=== PATIENT | female | born 1965 | race Caucasian/White ===

== ENCOUNTER 2017-12-14 11:34 | Inpatient (IN) | payer OTHER ==
[~2017-12-14] VITALS: Ht 162.6 cm; Wt 61.0 kg
[~2017-12-14 11:34] MED LIST: BACITRACIN 50,000 UNIT ONE; BUPIVACAINE/PF 0.5% ONE; THROMBIN 5,000 UNIT VIAL TP ONE
[2017-12-14 12:13] VITALS: BP 134/81
[2017-12-14] MEDS ORDERED: ACET325T14 PO (12:26)
[2017-12-14] MEDS ORDERED: TRAM50TA2 PO (12:26)
[2017-12-14] MEDS ORDERED: LORA1TAB PO (12:26)
[2017-12-14] MEDS ORDERED: ESCI10TA10 PO (12:26)
[2017-12-14] MEDS ORDERED: IBUP200C8 PO (12:26)
[2017-12-14] MEDS ORDERED: CELE200C PO (12:26)
[2017-12-14] MEDS ORDERED: ZOLP10TA PO (12:26)
[2017-12-14] MEDS ORDERED: LACTATED RINGERS 1,000 ML IV SCH (12:26)
[2017-12-14] MEDS ORDERED: LIDOCAINE-MPF 1%, 2ML ONE (12:29)
[2017-12-14] MEDS ORDERED: LIDOCAINE-MPF 1%, 2ML INFIL ONE (12:30)
[2017-12-14] MEDS ORDERED: FENTANYL PF 250 MCG/5ML ONE (13:11)
[2017-12-14] MEDS ORDERED: MIDAZOLAM 1 MG/ML, 2ML ONE (13:11)
[2017-12-14] MEDS ORDERED: PROPOFOL 10 MG/ML, 20ML ONE (13:12)
[2017-12-14] MEDS ORDERED: ROCURONIUM 10MG/ML,5ML ONE (13:12)
[2017-12-14] MEDS ORDERED: CEFAZOLIN 1,000 MG ONE ×2 (13:13)
[2017-12-14] MEDS ORDERED: WATER-INJECTION,STERILE 10 ML IV ONE (13:13)
[2017-12-14] MEDS ORDERED: NEOSTIGMINE 1 MG/ML, 10ML ONE (13:14)
[2017-12-14] MEDS ORDERED: DEXAMETHASONE 4 MG/ML, 1ML ONE ×2 (13:14)
[2017-12-14] MEDS ORDERED: ONDANSETRON 2MG/ML, 2ML ONE (13:14)
[2017-12-14] MEDS ORDERED: GLYCOPYRROLATE 0.4 MG/2 ML, 2ML ONE (13:14)
[2017-12-14] MEDS ORDERED: SCOPOLAMINE PATCH, 1.5MG PATCH.TD72 TD ONE ×2 (14:21)
[2017-12-14] MEDS ORDERED: FENTANYL PF 100 MCG/2ML IV PRN (14:30)
[2017-12-14] MEDS ORDERED: PROMETHAZINE 25 MG/ML, 1ML IV PRN (14:30)
[2017-12-14] MEDS ORDERED: OXYcodone 5 MG/5 ML ORAL.SOL UDC PO PRN (14:30)
[2017-12-14] MEDS ORDERED: METOCLOPRAMIDE 5 MG/ML, 2ML IV PRN (14:30)
[2017-12-14] MEDS ORDERED: ONDANSETRON 2MG/ML, 2ML IVPush PRN (14:30)
[2017-12-14] MEDS ORDERED: HYDROmorphone 1 MG/ML, 1ML IV PRN (14:30)
[2017-12-14] MEDS ORDERED: hydrALAzine 20 MG/ML, 1ML IV PRN (14:30)
[2017-12-14] MEDS ORDERED: LABETALOL 5MG/ML, 20ML IV PRN (14:30)
[2017-12-14] MEDS ORDERED: PROMETHAZINE 12.5 MG SUPP PR PRN (14:30)
[2017-12-14] MEDS ORDERED: ACETAMINOPHEN 325 MG TABLET PO PRN (14:30)
[2017-12-14] MEDS ORDERED: morphine SULFATE 10 MG/ML, 1ML IV PRN (14:30)
[2017-12-14] MEDS ORDERED: BUPIVACAINE/PF-EPI 0.5% 1:200K IM ONE (15:00)
[2017-12-14] MEDS ORDERED: BACITRACIN 50,000 UNIT IRRIG ONE (15:01)
[2017-12-14] MEDS ORDERED: THROMBIN 5,000 UNIT VIAL TP ONE (15:02)
[2017-12-14] MEDS ORDERED: FENTANYL PF 100 MCG/2ML ONE (15:23)
[2017-12-14] MEDS ORDERED: MEPERIDINE/PF 50 MG/ML ONE (15:50)
[2017-12-14] MEDS: MEPERIDINE/PF 25MG/0.5ML IVPush PRN ×2 (15:52→16:10)
[2017-12-14] MEDS ORDERED: TIZANIDINE 4MG TABLET PO ONE (16:00)
[2017-12-14] MEDS ORDERED: OXYcodone 5 MG/5 ML ORAL.SOL UDC ONE (16:31)
[2017-12-14] MEDS ORDERED: MORPHINE SULFATE 4 MG/ML, 1ML ONE (17:07)
[2017-12-14 17:30] VITALS: BP 107/57
[2017-12-14] MEDS ORDERED: PROMETHAZINE 25 MG/ML, 1ML IM PRN (18:00)
[2017-12-14] MEDS ORDERED: DIPHENHYDRAMINE 50 MG CAPSULE PO PRN (18:00)
[2017-12-14] MEDS ORDERED: ONDANSETRON ODT 4 MG PO PRN (18:00)
[2017-12-14] MEDS ORDERED: BISACODYL 10 MG SUPP PR PRN (18:00)
[2017-12-14] MEDS ORDERED: LORAZEPAM MC SCH (18:00)
[2017-12-14] MEDS ORDERED: MEPERIDINE/PF 100 MG/ML IM PRN (18:00)
[2017-12-14] MEDS ORDERED: ONDANSETRON 2MG/ML, 2ML IV PRN (18:00)
[2017-12-14] MEDS ORDERED: ZOLPIDEM 10MG TABLET PO PRN (18:00)
[2017-12-14] MEDS ORDERED: DIPHENHYDRAMINE 50 MG/ML, 1ML IVPush PRN (18:00)
[2017-12-14] MEDS ORDERED: TIZANIDINE 2MG TABLET PO PRN (18:00)
[2017-12-14] MEDS ORDERED: MAGNESIUM HYDROXIDE 8%, 30ML UDC PO PRN (18:00)
[2017-12-14] MEDS: NS + 20MEQ KCL 1,000 ML IV SCH (18:10)
[2017-12-14] MEDS ORDERED: LORazepam 1MG TABLET PO PRN (18:30)
[2017-12-14 20:19] VITALS: BP 95/67
[2017-12-14] MEDS: CEFAZOLIN PMX 1GM/50ML 50 ML IVPB SCH (23:10)
[2017-12-15 01:45] VITALS: BP 95/63
[2017-12-15] MEDS: NS + 20MEQ KCL 1,000 ML IV SCH (03:28)
[2017-12-15 04:03] VITALS: BP 94/52
[2017-12-15] MEDS: CEFAZOLIN PMX 1GM/50ML 50 ML IVPB SCH (07:09)
[2017-12-15 07:39] VITALS: BP 92/56
[2017-12-15] MEDS: HYDROmorphone 2MG TABLET PO PRN ×2 (08:26→12:47)
[2017-12-15] MEDS ORDERED: TIZA2TAB PO (08:49)
[2017-12-15] MEDS ORDERED: HYDR2TAB40 PO (08:49)
[2017-12-15] MEDS ORDERED: SENNA/DOCUSATE TABLET PO SCH (09:00)
[2017-12-15] MEDS ORDERED: CITALOPRAM 20 MG TABLET PO SCH (09:00)
[2017-12-15 13:30] VITALS: BP 96/58
== END 2017-12-15 13:50 | disposition home or self-care (01) | DRG 517 ==
LOC: OUT 11:34 → 4NOR 17:27 → OUT 17:35 → 4NOR 17:36
PROVIDERS: ADMIT Neurological Surgery; ATTEND Neurological Surgery
PROC: 01NB0ZZ Release Lumbar Nerve, Open Approach (ICD-10-PCS; principal; 2017-12-14 13:30)
DX: M48.061 Spinal stenosis, lumbar region without neurogenic claudication (principal); M54.16 Radiculopathy, lumbar region
CPT/HCPCS: 72100; J0690; J1100; J2175; J2250; J2270; J2405; J2704; J2710; J3010; J3490; J1200; J7120